=== PATIENT | female | born 1990 | race Caucasian/White ===

== ENCOUNTER 2016-10-07 12:24 | Emergency (ER) | payer SELFPAY ==
--- NOTE | 2016-10-07 12:41 | ED Physician Documentation ---
General Adult - HISTORIAN Historian: patient - HPI Chief Complaint: General Adult Onset: days ago Timing: still present Severity: moderate Further Comments: yes (Pt is a 26 yo female with c/o lightheadedness and tingling, in her hands. Pt says that she had not been eating well, and that she had been drinking 2 days ago. Pt has had some chest pain, but this occurs with movement. No n/v, no sob. Pt has not had dysuria. Normal bm's. Pt states that she gets dizzy with standing.) - ROS CONST: other (lightheadedness) EYES/ENT: none CVS/RESP: chest pain (with movement) GI/: none MS/SKIN/LYMPH: none NEURO/PSYCH: dizziness, numbness (transient numbness in hands, each hand at different times.) - PAST HX Past History: other (possible hx anxiety) Allergies/Adverse Reactions: Allergies Allergy/AdvReac Type Severity Reaction Status Date / Time No Known Allergies Allergy Verified 10/07/16 13:21 Home Medications: Ambulatory Orders Medication Instructions Recorded NK [NK] 10/07/16 - SOCIAL HX Smoking History: other (unknown smoking hx) - FAMILY HX Family History: No - REVIEWED ASSESSMENTS Nursing Assessment Reviewed: Yes Vitals Reviewed: Yes Progress - Progress Progress: U/A - neg UDS - neg NS 1 L IVF no change Ativan 0.5 mg IV Glucose=83. Pt had not been eating. Pt given juice in ER. - EKG/XRAY/CT EKG: NSR (HR=75; normal axis; normal MN interval; normal EKG.) General Adult Physical Exam - PHYSICAL EXAM GENERAL APPEARANCE: flat affect EENT: eye inspection normal, ENT inspection normal, pharynx normal NECK: normal inspection, supple RESPIRATORY: no resp distress, chest non-tender, breath sounds normal CVS: reg rate & rhythm, heart sounds normal ABDOMEN: soft, no organomegaly, normal bowel sounds BACK: normal inspection, no CVA tenderness SKIN: warm/dry, normal color EXTREMITIES: non-tender, normal range of motion, no evidence of injury NEURO: oriented X3, motor nml, sensation nml, other (flat affect) Discharge Clincal Impression: Lightheadedness, possible anxiety Referrals: Primary Doctor,No [Primary Care Provider] - 2 Days Home Medications: Ambulatory Orders NK [NK] 10/07/16 Condition: Stable Disposition: 01 HOME, SELF-CARE Decision to Admit: NO Decision Time: 14:28
[2016-10-07 13:13] LABS: BASOPHILS % 0.2 (0.0-1.5); EOSINOPHILS % 0.9 % (0.0-6.8); LYMPHOCYTES # 0.9 # k/uL (0.6-4.0); MEAN CORPUSCULAR HEMOGLOBIN 32.8 pg (28.0-34.0); MONOCYTES # 0.3 # k/uL (0.0-0.9); MONOCYTES % 4.4 % (0.0-11.0); NEUTROPHILS # 4.8 # k/uL (1.4-7.7)
[2016-10-07 13:21] LABS: eGFR (African) > 60; eGFR (Non-African) > 60
[2016-10-07] MEDS: 0.9 % SODIUM CHLORIDE 1,000 ML IV ONE (13:50)
[2016-10-07] MEDS: KETOROLAC TROMETHAMINE 30 MG/1ML VIAL IM ONE (13:52)
[2016-10-07] MEDS: DIAZEPAM 5 MG/ML DISP.SYRIN IM ONE (13:52)
[2016-10-07] MEDS: LORazepam 2 MG/ML VIAL IVP ONE (14:05)
[2016-10-07 14:43] VITALS: BP 110/77
[2016-10-08 05:57] LABS: APPEARANCE,URINE CLEAR (CLEAR); COLOR,URINE YELLOW (YELLOW); OCCULT BLOOD,URINE NEGATIVE (NEGATIVE); UROBILINOGEN URINE 0.2 Eu (0.2-1.0)
[2016-10-08 05:58] LABS: AMPHETAMINE NEGATIVE ng/mL (<1000); BARBITURATES NEGATIVE ng/mL (<300); CANNABINOIDS NEGATIVE ng/mL (<50); COCAINE NEGATIVE ng/mL (<150); METHAMPHETAMINE NEGATIVE ng/mL (<1000); METHYLENEDIOXYMETHAMPHETAMINE NEGATIVE ng/mL (<500)
== END 2016-10-07 14:40 | disposition home or self-care (01) ==
LOC: ED 12:24 → EDSTATUS 12:25 → ED 14:40
DX: R42 Dizziness and giddiness (principal)
CPT/HCPCS: 80053; 80320; 80377; 81002; 81025; 85025; 93005; J2060; J7030; 96361; 96374; 99283; G0480; G0481; S1016